=== PATIENT | female | born 1955 | race Caucasian/White ===

== ENCOUNTER → 2020-10-08 | Outpatient (REF) | payer MEDICARE ==
[2020-10-08 17:07] LABS: BACTERIA, URINE AUTO NEGATIVE (NEGATIVE); RBC, URINE AUTO 0 /HPF (0-3); SQUAMOUS EPITHELIAL CELL UR AU 0 /HPF (0-6); WBC, URINE AUTO 0 /HPF (0-3)
== END ==
LOC: M SMT 16:52
PROVIDERS: ATTEND Specialist
DX: R39.15 Urgency of urination (principal)
CPT/HCPCS: 51798; 81015; 87086; G0463